=== PATIENT | female | born 1975 | race Caucasian/White ===

== ENCOUNTER 2018-10-24 07:59 | Observation (INO) ==
[2018-10-24 09:57] LABS: INR 1.1; PT Patient Result 11.6 SECS; Partial Thromboplastin Time 25.9 SECS (0-40)
[2018-10-24 10:03] LABS: Basophils % 0.3 % (0.0-0.8); Eosinophils % 0.3 % (0.00-10.9); Hematocrit 38.5 VOL% (35.7-47.0); Hemoglobin 10.7 GM/DL (12.0-16.0); Immature Granulocytes % 0.4 %; Immature Granulocytes Absolute 0.04 #; Lymphocytes # 0.5 10*3/uL (1.4-4.0); Mean Corpuscular HGB Conc 27.8 GM/DL (32-36); Mean Corpuscular Volume 62.9 FL (87-102); Monocytes % 3.2 % (1.7-12.7); NRBC # 0.02 10*3/uL; Neutrophils % 90.8 % (38.7-73.9); Platelet Count 273 T/CUMM (130-400); Red Blood Count 6.12 MC/CUMM (3.8-5.5); Red Cell Distribution Width 29.8 % (9.3-17.3)
[2018-10-24 10:09] LABS: Anisocytosis 1+; Hypochromasia 2+; Lymphocytes 3 % (20-55); Microcytosis 1+; Ovalocytes Few; Polychromasia Slight; Segmented Neutrophils 96 % (50-85); Total Cells Counted 100
[2018-10-24 10:10] LABS: Platelet Estimate Normal
[2018-10-24 10:23] LABS: Albumin 2.6 G/DL (3.4-5.0); Bilirubin,Total 0.4 MG/DL (0.2-1.0); Calcium 8.6 MG/DL (8.5-10.1); Osmolality,Calculated 283.3 MOS/KG (273-304); Total Protein 6.8 G/DL (6.4-8.3)
[2018-10-24] MEDS ORDERED: ENOXAPARIN 60 MG/0.6 ML SYRINGE SUBCUT STA (11:21)
[2018-10-24] MEDS ORDERED: ONDANSETRON 4 MG/2 ML VIAL IV PRN (14:59)
[2018-10-24] MEDS ORDERED: ACETAMINOPHEN 325 MG TABLET PO PRN (14:59)
[2018-10-24] MEDS ORDERED: DEXTROSE 50% 25 GM/50 ML VIAL IV PRN (15:17)
[2018-10-24] MEDS ORDERED: GLUCAGON 1 MG VIAL IM PRN (15:17)
[2018-10-24] MEDS: INSULIN LISPRO 100 UNIT/ML SUBCUT SCH ×2 (17:35→21:00)
[2018-10-24] MEDS ORDERED: APIXABAN 5 MG TABLET PO SCH (21:00)
[2018-10-25 05:46] LABS: Calcium 8.3 MG/DL (8.5-10.1); Thyroid Stimulating Hormone 2.23 uIU/ml (0.358-3.74)
[2018-10-25 05:49] LABS: Basophils % 0.8 % (0.0-0.8); Eosinophils # 0.1 10*3/uL (0.0-0.87); Eosinophils % 1.3 % (0.00-10.9); Hematocrit 33.1 VOL% (35.7-47.0); Hemoglobin 9.2 GM/DL (12.0-16.0); Immature Granulocytes % 0.5 %; Immature Granulocytes Absolute 0.02 #; Lymphocytes # 0.8 10*3/uL (1.4-4.0); Lymphocytes % 21.4 % (21.3-54.2); Mean Corpuscular HGB Conc 27.8 GM/DL (32-36); Mean Corpuscular Volume 62.6 FL (87-102); NRBC # 0.04 10*3/uL; Platelet Count 258 T/CUMM (130-400); Red Blood Count 5.29 MC/CUMM (3.8-5.5); White Blood Count 3.9 T/CUMM (4-12)
[2018-10-25 05:54] LABS: Hypochromasia 1+; Ovalocytes Slight; Platelet Estimate Adequate
[2018-10-25 05:55] LABS: Microcytosis Slight
[2018-10-25] MEDS ORDERED: DEXTROSE 10% 250 ML IV PRN (06:55)
[2018-10-25] MEDS: INSULIN LISPRO 100 UNIT/ML SUBCUT SCH ×2 (07:47→14:48)
[2018-10-25] MEDS ORDERED: APIXABAN 5 MG TABLET PO SCH (09:00)
[2018-10-25] MEDS ORDERED: PANTOPRAZOLE 40 MG TABLET PO SCH (09:00)
[2018-10-25] MEDS ORDERED: SODIUM POLYSTYRENE SULFATE 15 GM/60 ML BOTTLE PO ONE (11:00)
[2018-10-25 12:09] VITALS: BP 95/67
== END 2018-10-25 14:00 | disposition home or self-care (01) ==
LOC: N.ED 07:59 → N.EDINP 11:01 → N.2E 14:24 → INTOOBSV 14:59
PROVIDERS: ADMIT Internal Medicine; ATTEND Internal Medicine

== ENCOUNTER 2020-06-20 19:19 | Inpatient (IN) ==
[2020-06-20 21:04] LABS: Albumin 2.9 G/DL (3.4-5.0); Bilirubin,Total 0.6 MG/DL (0.2-1.0); Calcium 8.9 MG/DL (8.5-10.1); Osmolality,Calculated 286.7 MOS/KG (273-304); Potassium 4.7 MMOL/L (3.5-5.1); Total Protein 7.8 G/DL (6.4-8.3)
[2020-06-20 21:20] LABS: Basophils % 0.3 % (0.0-0.8); Hematocrit 36.7 VOL% (35.7-47.0); Hemoglobin 8.6 GM/DL (12.0-16.0); Immature Granulocytes % 0.9 %; Immature Granulocytes Absolute 0.12 #; Lymphocytes # 0.3 10*3/uL (1.4-4.0); Lymphocytes % 2.3 % (21.3-54.2); Mean Corpuscular HGB Conc 23.4 GM/DL (32-36); Monocytes % 2.4 % (1.7-12.7); NRBC # 0.18 10*3/uL; Neutrophils % 94.1 % (38.7-73.9); Platelet Count 353 T/CUMM (130-400); Red Blood Count 6.12 MC/CUMM (3.8-5.5); Red Cell Distribution Width 26.8 % (9.3-17.3); White Blood Count 13.1 T/CUMM (4-12)
[2020-06-20 22:32] LABS: Lymphocytes 2 % (20-55); Segmented Neutrophils 98 % (50-85); Total Cells Counted 100
[2020-06-20 22:36] LABS: Ovalocytes Slight; Poikilocytosis 1+; Polychromasia Few; Schistocytes 1+
[2020-06-20 22:37] LABS: Macrocytosis 1+; Microcytosis 1+; Platelet Estimate Decreased; Spherocytes Few; Tear Drop Cells Few
[2020-06-20] MEDS ORDERED: CLINDAMYCIN INJ 600 MG in PREMIX 1 EACH IV STA (23:12)
[2020-06-21] MEDS ORDERED: GLUCAGON 1 MG VIAL IM PRN (00:37)
[2020-06-21] MEDS ORDERED: DEXTROSE 50% 25 GM/50 ML VIAL IV PRN ×2 (00:37→00:51)
[2020-06-21] MEDS ORDERED: ONDANSETRON 4 MG/2 ML VIAL IV PRN (00:37)
[2020-06-21] MEDS ORDERED: LACTATED RINGERS 1,000 ML IV SCH (01:00)
[2020-06-21] MEDS: INSULIN LISPRO 100 UNIT/ML SUBCUT SCH ×3 (02:07→10:58)
[2020-06-21] MEDS ORDERED: DOXYCYCLINE HYCLATE INJ 100 MG in SODIUM CHLORIDE 0.9% 100 ML IV SCH (04:30)
[2020-06-21 04:43] LABS: Calcium 8.8 MG/DL (8.5-10.1); Osmolality,Calculated 282.8 MOS/KG (273-304); Potassium 5.2 MMOL/L (3.5-5.1)
[2020-06-21 04:47] LABS: Basophils % 0.2 % (0.0-0.8); Eosinophils % 0.1 % (0.00-10.9); Hematocrit 35.4 VOL% (35.7-47.0); Hemoglobin 8.6 GM/DL (12.0-16.0); Immature Granulocytes % 0.7 %; Immature Granulocytes Absolute 0.09 #; Lymphocytes # 0.3 10*3/uL (1.4-4.0); Lymphocytes % 1.9 % (21.3-54.2); Mean Corpuscular HGB Conc 24.3 GM/DL (32-36); Mean Corpuscular Volume 58.8 FL (87-102); Monocytes % 2.6 % (1.7-12.7); NRBC # 0.22 10*3/uL; Neutrophils % 94.5 % (38.7-73.9); Platelet Count 296 T/CUMM (130-400); Red Blood Count 6.02 MC/CUMM (3.8-5.5); Red Cell Distribution Width 26.7 % (9.3-17.3); White Blood Count 13.3 T/CUMM (4-12)
[2020-06-21 05:09] LABS: Lymphocytes 3 % (20-55); Nucleated Red Blood Cells 1 (0-5); Segmented Neutrophils 96 % (50-85); Total Cells Counted 100
[2020-06-21 05:10] LABS: Hypochromasia 1+; Macrocytosis Slight; Platelet Estimate Adequate; Polychromasia Slight
[2020-06-21] MEDS ORDERED: MAGNESIUM SULF RIDER 4 GM in PREMIX 1 EACH IV PRN (07:57)
[2020-06-21] MEDS ORDERED: CLINDAMYCIN INJ 600 MG in PREMIX 1 EACH IV SCH (08:00)
[2020-06-21] MEDS ORDERED: SODIUM BICARB INJ 100 MEQ in SODIUM CHLORIDE 0.45% 1,000 ML IV SCH (08:30)
[2020-06-21] MEDS: PANTOPRAZOLE 40 MG VIAL IV SCH (10:34)
[2020-06-21] MEDS: LEVOFLOXACIN INJ 750 MG in PREMIX 1 EACH IV SCH (10:37)
[2020-06-21] MEDS ORDERED: INSULIN REGULAR DRIP 100 ML IV PRN (11:43)
[2020-06-21] MEDS: SODIUM BICARB INJ 50 MEQ in DEXTROSE 5% 1,000 ML IV SCH ×2 (12:00→20:29)
[2020-06-21 12:55] LABS: Calcium 8.6 MG/DL (8.5-10.1); Osmolality,Calculated 288.1 MOS/KG (273-304); Potassium 4.1 MMOL/L (3.5-5.1)
[2020-06-21] MEDS: NORETHINDRONE PO SCH (14:17)
[2020-06-21] MEDS: ETHINYL ESTRADIOL PO SCH (14:17)
[2020-06-21 18:34] LABS: Calcium 8.1 MG/DL (8.5-10.1); Osmolality,Calculated 286.1 MOS/KG (273-304); Potassium 3.5 MMOL/L (3.5-5.1)
[2020-06-21] MEDS: POTASSIUM CHLORIDE RIDER 10 MEQ in PREMIX 1 EACH IV PRN ×2 (20:28→20:29)
[2020-06-21] MEDS: SIMVASTATIN 10 MG TABLET PO SCH (20:29)
[2020-06-22 02:00] LABS: Osmolality,Calculated 274.8 MOS/KG (273-304); Potassium 3.7 MMOL/L (3.5-5.1)
[2020-06-22] MEDS: POTASSIUM CHLORIDE RIDER 10 MEQ in PREMIX 1 EACH IV PRN ×2 (02:17→03:17)
[2020-06-22] MEDS: SODIUM BICARB INJ 50 MEQ in DEXTROSE 5% 1,000 ML IV SCH (05:30)
[2020-06-22 06:09] LABS: Calcium 7.9 MG/DL (8.5-10.1); Osmolality,Calculated 272.1 MOS/KG (273-304); Potassium 3.8 MMOL/L (3.5-5.1)
[2020-06-22] MEDS: NORETHINDRONE PO SCH (11:37)
[2020-06-22] MEDS: LEVOFLOXACIN INJ 750 MG in PREMIX 1 EACH IV SCH (11:37)
[2020-06-22] MEDS: ETHINYL ESTRADIOL PO SCH (11:37)
[2020-06-22] MEDS: PANTOPRAZOLE 40 MG VIAL IV SCH (11:37)
[2020-06-22] MEDS: INSULIN NPH 100 UNIT/ML SUBCUT SCH ×2 (15:09→18:42)
[2020-06-22] MEDS ORDERED: hydrALAZINE 20 MG/1 ML VIAL IV PRN (18:06)
[2020-06-22] MEDS: SIMVASTATIN 10 MG TABLET PO SCH (22:04)
[2020-06-23] MEDS ORDERED: lisinopriL 10 MG TABLET PO SCH (09:00)
[2020-06-23] MEDS ORDERED: INFLUENZA VIRUS VACCINE 0.5 ML SYRINGE IM ONE (09:00)
[2020-06-23] MEDS: SODIUM CHLORIDE 0.9% 1,000 ML IV SCH ×2 (09:29→20:40)
[2020-06-23] MEDS: PANTOPRAZOLE 40 MG VIAL IV SCH (10:56)
[2020-06-23] MEDS: LEVOFLOXACIN INJ 750 MG in PREMIX 1 EACH IV SCH (10:56)
[2020-06-23] MEDS: ETHINYL ESTRADIOL PO SCH (11:41)
[2020-06-23] MEDS: INSULIN NPH 100 UNIT/ML SUBCUT SCH ×2 (11:41→18:12)
[2020-06-23] MEDS: NORETHINDRONE PO SCH (11:41)
[2020-06-23] MEDS: SIMVASTATIN 10 MG TABLET PO SCH (20:33)
[2020-06-24 05:03] LABS: Basophils % 0.4 % (0.0-0.8); Eosinophils # 0.1 10*3/uL (0.0-0.87); Eosinophils % 1.2 % (0.00-10.9); Hematocrit 30.6 VOL% (35.7-47.0); Hemoglobin 7.7 GM/DL (12.0-16.0); Immature Granulocytes % 1.4 %; Immature Granulocytes Absolute 0.11 #; Lymphocytes # 0.7 10*3/uL (1.4-4.0); Lymphocytes % 8.7 % (21.3-54.2); Mean Corpuscular HGB Conc 25.2 GM/DL (32-36); Mean Corpuscular Volume 57.3 FL (87-102); Monocytes % 8.6 % (1.7-12.7); NRBC # 0.12 10*3/uL; Neutrophils % 79.7 % (38.7-73.9); Platelet Count 311 T/CUMM (130-400); Red Blood Count 5.34 MC/CUMM (3.8-5.5); Red Cell Distribution Width 26.5 % (9.3-17.3); White Blood Count 7.7 T/CUMM (4-12)
[2020-06-24 05:08] LABS: Hypochromasia 2+; Macrocytosis Slight; Platelet Estimate Adequate
[2020-06-24 05:19] LABS: Calcium 8.5 MG/DL (8.5-10.1); Osmolality,Calculated 286.4 MOS/KG (273-304); Potassium 3.7 MMOL/L (3.5-5.1)
[2020-06-24] MEDS: SODIUM CHLORIDE 0.9% 1,000 ML IV SCH (06:08)
[2020-06-24] MEDS ORDERED: propofoL 200 MG/20 ML VIAL IV ONE (07:55)
[2020-06-24] MEDS ORDERED: LIDOCAINE 2% 5 ML VIAL ONE (07:55)
[2020-06-24] MEDS: INSULIN NPH 100 UNIT/ML SUBCUT SCH ×2 (07:58→16:20)
[2020-06-24] MEDS ORDERED: LACTATED RINGERS 1,000 ML IV SCH (08:00)
[2020-06-24] MEDS ORDERED: ONDANSETRON 4 MG/2 ML VIAL ONE (08:41)
[2020-06-24] MEDS ORDERED: SUCCINYLCHOLINE 200 MG/10 ML VIAL ONE ×2 (08:41→09:39)
[2020-06-24] MEDS ORDERED: SEVOFLURANE 1 UNIT/15 MINUTE INH ONE ×6 (08:41→12:54)
[2020-06-24] MEDS ORDERED: PHENYLEPHRINE 1 MG/10 ML SYRINGE IV ONE ×4 (08:41→12:29)
[2020-06-24] MEDS ORDERED: fentaNYL 100 MCG/2 ML VIAL ONE ×2 (08:46→11:07)
[2020-06-24] MEDS ORDERED: PHENYLEPHRINE 10 MG/1 ML VIAL IV ONE (08:57)
[2020-06-24 09:00] LABS: % Iron Saturation 3.4 % (18-50); Ferritin 6.7 ng/ml (8-252)
[2020-06-24] MEDS ORDERED: LACTATED RINGERS 1,000 ML IV ONE (09:03)
[2020-06-24] MEDS ORDERED: SODIUM CHLORIDE 0.9% 250 ML IV ONE (09:03)
[2020-06-24] MEDS ORDERED: ROCURONIUM 50 MG/5 ML VIAL IV ONE ×2 (09:29→11:07)
[2020-06-24] MEDS ORDERED: MIDAZOLAM 2 MG/2 ML VIAL ONE ×3 (09:30→11:07)
[2020-06-24 09:53] LABS: Folate 11.4 NG/ML (5.38-24.0)
[2020-06-24] MEDS ORDERED: MIDAZOLAM 100 MG in SODIUM CHLORIDE 0.9% 80 ML IV PRN (10:09)
[2020-06-24] MEDS: ETHINYL ESTRADIOL PO SCH (10:26)
[2020-06-24] MEDS: NORETHINDRONE PO SCH (10:26)
[2020-06-24] MEDS: PANTOPRAZOLE 40 MG VIAL IV SCH (10:27)
[2020-06-24 10:33] LABS: Bacteria,Urine Occasional /HPF (Few); Bilirubin,Urine Negative (Negative); Blood, Urine Negative (Negative); Glucose,Urine (UA) >=500 mg/dL (Negative); Ketones,Urine 80 mg/dL (Negative); Mucus,Urine Occasional /LPF (Occasional); Nitrite,Urine Negative (Negative); Protein,Urine Negative; RBC,Urine 4 /HPF (0-4); Squamous Epithelial Cell,Urine Occasional /HPF (0-10); Urine Appearance CLEAR (Clear); Urine Color Yellow (Yellow); Urine Specific Gravity 1.021 (1.001-1.035); Urine Urobilinogen < 2.0 EU/DL (0.2-1.0); WBC,Urine <1 /HPF (0-6)
[2020-06-24 10:41] LABS: ABG Base Excess -8.5 MMOL/L (-2.5-2.5); ABG HCO3 17.5 MMOL/L (20-26); ABG PCO2 29.9 MM HG (35-48); ABG PH 7.344 (7.35-7.45); ABG TCO2 15.4 MMOL/L (23-27); Allen Test Positive; Pt O2 Delivery Device Ventilator
[2020-06-24] MEDS: LEVOFLOXACIN INJ 750 MG in PREMIX 1 EACH IV SCH (10:50)
[2020-06-24] MEDS ORDERED: INSULIN REGULAR 100 UNIT/ML ONE (11:30)
[2020-06-24] MEDS ORDERED: SODIUM BICARBONATE 50 MEQ/50 ML VIAL IV ONE ×3 (11:57→12:54)
[2020-06-24] MEDS ORDERED: DEXAMETHASONE 4 MG/1 ML VIAL ONE (12:37)
[2020-06-24] MEDS: INSULIN LISPRO 100 UNIT/ML SUBCUT SCH ×4 (13:32→23:49)
[2020-06-24] MEDS: SODIUM BICARB INJ 50 MEQ in SODIUM CHLORIDE 0.45% 1,000 ML IV SCH (14:17)
[2020-06-24] MEDS: SIMVASTATIN 10 MG TABLET PO SCH (20:37)
[2020-06-24] MEDS ORDERED: fentaNYL INJ 1,250 MCG in SODIUM CHLORIDE 0.9% 225 ML IV PRN (20:41)
[2020-06-24] MEDS ORDERED: PHENYLEPHRINE DRIP 40 MG/250 ML PREMIX IV PRN (23:18)
[2020-06-24] MEDS ORDERED: PHENYLEPHRINE DRIP 40 MG/250 ML PREMIX IV ONE (23:21)
[2020-06-25] MEDS: SODIUM BICARB INJ 50 MEQ in SODIUM CHLORIDE 0.45% 1,000 ML IV SCH ×2 (00:54→13:31)
[2020-06-25 04:25] LABS: ABG Base Excess -0.8 MMOL/L (-2.5-2.5); ABG HCO3 23.6 MMOL/L (20-26); ABG Oxygen Saturation 85.3 % (95-100); ABG PCO2 31.3 MM HG (35-48); ABG PH 7.465 (7.35-7.45); ABG PO2 50.9 MM HG (80-95); ABG TCO2 21.4 MMOL/L (23-27); Allen Test Positive; Pt O2 Delivery Device Ventilator
[2020-06-25] MEDS: INSULIN LISPRO 100 UNIT/ML SUBCUT SCH ×5 (04:55→20:37)
[2020-06-25] MEDS: INSULIN NPH 100 UNIT/ML SUBCUT SCH ×2 (08:22→17:05)
[2020-06-25] MEDS: FERRIC GLUCONATE COMPLEX 125 MG in SODIUM CHLORIDE 0.9% 100 ML IV SCH (08:22)
[2020-06-25] MEDS: PANTOPRAZOLE 40 MG VIAL IV SCH (08:39)
[2020-06-25] MEDS: ETHINYL ESTRADIOL PO SCH (08:40)
[2020-06-25] MEDS: NORETHINDRONE PO SCH (08:40)
[2020-06-25 08:46] LABS: Calcium 7.2 MG/DL (8.5-10.1); Osmolality,Calculated 283.3 MOS/KG (273-304); Potassium 3.2 MMOL/L (3.5-5.1)
[2020-06-25 08:56] LABS: Basophils % 0.1 % (0.0-0.8); Eosinophils # 0.1 10*3/uL (0.0-0.87); Eosinophils % 0.6 % (0.00-10.9); Hematocrit 23.1 VOL% (35.7-47.0); Immature Granulocytes Absolute 0.08 #; Lymphocytes # 0.8 10*3/uL (1.4-4.0); Lymphocytes % 10.3 % (21.3-54.2); Mean Corpuscular Volume 54.9 FL (87-102); Monocytes % 5.5 % (1.7-12.7); NRBC # 0.17 10*3/uL; Neutrophils % 82.5 % (38.7-73.9); Platelet Count 231 T/CUMM (130-400); Red Blood Count 4.21 MC/CUMM (3.8-5.5); Red Cell Distribution Width 25.9 % (9.3-17.3); White Blood Count 7.8 T/CUMM (4-12)
[2020-06-25 09:05] LABS: Hypochromasia 2+; Macrocytosis Slight; Platelet Estimate Adequate; Polychromasia Slight
[2020-06-25 09:15] LABS: ABG Base Excess -0.4 MMOL/L (-2.5-2.5); ABG HCO3 24.2 MMOL/L (20-26); ABG PCO2 28.4 MM HG (35-48); ABG PH 7.505 (7.35-7.45); ABG TCO2 21.3 MMOL/L (23-27); Allen Test Positive; Pt O2 Delivery Device Ventilator
[2020-06-25] MEDS ORDERED: SODIUM CHLORIDE 0.9% 1,000 ML IV PRN (09:48)
[2020-06-25] MEDS: LEVOFLOXACIN INJ 750 MG in PREMIX 1 EACH IV SCH (09:51)
[2020-06-25] MEDS: VANCOMYCIN INJ 750 MG in SODIUM CHLORIDE 0.9% 250 ML IV SCH ×2 (11:58→23:42)
[2020-06-25] MEDS: SODIUM CHLORIDE 0.45% 1,000 ML IV SCH (13:34)
[2020-06-25] MEDS: POTASSIUM CHLORIDE RIDER 10 MEQ in PREMIX 1 EACH IV PRN ×3 (17:05→20:48)
[2020-06-25] MEDS: SIMVASTATIN 10 MG TABLET PO SCH (20:48)
[2020-06-26] MEDS: POTASSIUM CHLORIDE RIDER 10 MEQ in PREMIX 1 EACH IV PRN (00:04)
[2020-06-26] MEDS: INSULIN LISPRO 100 UNIT/ML SUBCUT SCH ×5 (00:27→15:56)
[2020-06-26 00:35] LABS: Hematocrit 38.5 VOL% (35.7-47.0); Hemoglobin 11.2 GM/DL (12.0-16.0)
[2020-06-26 03:33] LABS: Basophils # 0.1 10*3/uL (0.0-0.2); Basophils % 0.3 % (0.0-0.8); Eosinophils # 0.1 10*3/uL (0.0-0.87); Eosinophils % 0.6 % (0.00-10.9); Hematocrit 36.9 VOL% (35.7-47.0); Hemoglobin 11.1 GM/DL (12.0-16.0); Immature Granulocytes % 1.1 %; Immature Granulocytes Absolute 0.18 #; Lymphocytes # 0.6 10*3/uL (1.4-4.0); Lymphocytes % 3.5 % (21.3-54.2); Mean Corpuscular HGB Conc 30.1 GM/DL (32-36); Mean Corpuscular Volume 61.8 FL (87-102); Monocytes % 3.8 % (1.7-12.7); NRBC # 0.35 10*3/uL; Neutrophils % 90.7 % (38.7-73.9); Platelet Count 160 T/CUMM (130-400); Red Blood Count 5.97 MC/CUMM (3.8-5.5); Red Cell Distribution Width 31.6 % (9.3-17.3); White Blood Count 16.2 T/CUMM (4-12)
[2020-06-26 03:51] LABS: Calcium 7.4 MG/DL (8.5-10.1); Osmolality,Calculated 277.5 MOS/KG (273-304); Potassium 4.1 MMOL/L (3.5-5.1)
[2020-06-26 03:57] LABS: Lymphocytes 5 % (20-55); Nucleated Red Blood Cells 2 (0-5); Platelet Estimate Normal; Segmented Neutrophils 92 % (50-85); Total Cells Counted 100
[2020-06-26 03:58] LABS: Hypochromasia Slight; Microcytosis 1+
[2020-06-26] MEDS: ETHINYL ESTRADIOL PO SCH (08:26)
[2020-06-26] MEDS: NORETHINDRONE PO SCH (08:26)
[2020-06-26] MEDS: MAGNESIUM SULF RIDER 2 GM in PREMIX 1 EACH IV PRN (08:30)
[2020-06-26] MEDS ORDERED: MAGNESIUM SULF RIDER 2 GM in PREMIX 1 EACH IV ONE (08:32)
[2020-06-26] MEDS: INSULIN NPH 100 UNIT/ML SUBCUT SCH ×2 (08:36→17:48)
[2020-06-26] MEDS: PANTOPRAZOLE 40 MG VIAL IV SCH (08:36)
[2020-06-26] MEDS: FERRIC GLUCONATE COMPLEX 125 MG in SODIUM CHLORIDE 0.9% 100 ML IV SCH (08:36)
[2020-06-26] MEDS: SODIUM CHLORIDE 0.45% 1,000 ML IV SCH (10:35)
[2020-06-26] MEDS ORDERED: INFLUENZA VIRUS VACCINE 0.5 ML SYRINGE IM ONE (11:00)
[2020-06-26] MEDS: VANCOMYCIN INJ 750 MG in SODIUM CHLORIDE 0.9% 250 ML IV SCH (12:02)
[2020-06-26] MEDS ORDERED: SODIUM PHOSPHATE INJ 30 MMOL in SODIUM CHLORIDE 0.9% 250 ML IV ONE (15:00)
[2020-06-26] MEDS: SIMVASTATIN 10 MG TABLET PO SCH (22:40)
[2020-06-27] MEDS: INSULIN LISPRO 100 UNIT/ML SUBCUT SCH ×6 (01:33→20:43)
[2020-06-27] MEDS: SODIUM CHLORIDE 0.45% 1,000 ML IV SCH ×3 (01:48→23:39)
[2020-06-27] MEDS: VANCOMYCIN INJ 750 MG in SODIUM CHLORIDE 0.9% 250 ML IV SCH ×2 (01:48→13:00)
[2020-06-27 04:33] LABS: Calcium 7.6 MG/DL (8.5-10.1); Osmolality,Calculated 277.4 MOS/KG (273-304); Potassium 3.3 MMOL/L (3.5-5.1)
[2020-06-27 04:55] LABS: Basophils # 0.1 10*3/uL (0.0-0.2); Basophils % 0.3 % (0.0-0.8); Eosinophils # 0.2 10*3/uL (0.0-0.87); Eosinophils % 1.6 % (0.00-10.9); Hematocrit 34.8 VOL% (35.7-47.0); Hemoglobin 10.4 GM/DL (12.0-16.0); Immature Granulocytes % 0.9 %; Immature Granulocytes Absolute 0.13 #; Lymphocytes # 0.6 10*3/uL (1.4-4.0); Lymphocytes % 4.1 % (21.3-54.2); Mean Corpuscular HGB Conc 29.9 GM/DL (32-36); Mean Corpuscular Volume 62.8 FL (87-102); Monocytes % 4.6 % (1.7-12.7); NRBC # 0.12 10*3/uL; Neutrophils % 88.5 % (38.7-73.9); Red Blood Count 5.54 MC/CUMM (3.8-5.5); Red Cell Distribution Width 32.3 % (9.3-17.3); White Blood Count 14.3 T/CUMM (4-12)
[2020-06-27 04:56] LABS: Platelet Count 209 T/CUMM (130-400)
[2020-06-27 04:59] LABS: Lymphocytes 4 % (20-55); Platelet Estimate Adequate; Segmented Neutrophils 92 % (50-85); Total Cells Counted 100
[2020-06-27 05:00] LABS: Hypochromasia Slight; Microcytosis 1+
[2020-06-27] MEDS: POTASSIUM CHLORIDE RIDER 10 MEQ in PREMIX 1 EACH IV PRN ×4 (06:52→13:00)
[2020-06-27] MEDS: FERRIC GLUCONATE COMPLEX 125 MG in SODIUM CHLORIDE 0.9% 100 ML IV SCH (10:30)
[2020-06-27] MEDS: INSULIN NPH 100 UNIT/ML SUBCUT SCH ×2 (11:13→17:16)
[2020-06-27] MEDS: PANTOPRAZOLE 40 MG VIAL IV SCH (11:15)
[2020-06-27] MEDS: ETHINYL ESTRADIOL PO SCH (11:15)
[2020-06-27] MEDS: NORETHINDRONE PO SCH (11:15)
[2020-06-27] MEDS: SIMVASTATIN 10 MG TABLET PO SCH (20:37)
[2020-06-28] MEDS: VANCOMYCIN INJ 750 MG in SODIUM CHLORIDE 0.9% 250 ML IV SCH ×2 (00:20→21:33)
[2020-06-28] MEDS: INSULIN LISPRO 100 UNIT/ML SUBCUT SCH ×6 (00:20→23:44)
[2020-06-28] MEDS: SODIUM CHLORIDE 0.45% 1,000 ML IV SCH ×2 (00:37→21:35)
[2020-06-28 06:39] LABS: Calcium 8.4 MG/DL (8.5-10.1); Osmolality,Calculated 274.7 MOS/KG (273-304); Potassium 3.8 MMOL/L (3.5-5.1)
[2020-06-28 07:54] LABS: Basophils # 0.1 10*3/uL (0.0-0.2); Basophils % 0.5 % (0.0-0.8); Eosinophils # 0.4 10*3/uL (0.0-0.87); Eosinophils % 4.2 % (0.00-10.9); Hematocrit 34.1 VOL% (35.7-47.0); Hemoglobin 9.6 GM/DL (12.0-16.0); Immature Granulocytes % 1.6 %; Immature Granulocytes Absolute 0.16 #; Lymphocytes # 0.7 10*3/uL (1.4-4.0); Lymphocytes % 7.1 % (21.3-54.2); Mean Corpuscular HGB Conc 28.2 GM/DL (32-36); Mean Corpuscular Volume 64.7 FL (87-102); Monocytes % 6.9 % (1.7-12.7); NRBC # 0.11 10*3/uL; Neutrophils % 79.7 % (38.7-73.9); Platelet Count 219 T/CUMM (130-400); Red Blood Count 5.27 MC/CUMM (3.8-5.5); Red Cell Distribution Width 33.1 % (9.3-17.3); White Blood Count 9.7 T/CUMM (4-12)
[2020-06-28 08:10] LABS: Platelet Estimate Normal
[2020-06-28 08:11] LABS: Anisocytosis 2+; Basophilic Stippling Slight; Ovalocytes Few; Poikilocytosis 1+; Target Cells Few; Tear Drop Cells Few
[2020-06-28 08:12] LABS: Polychromasia Slight
[2020-06-28] MEDS: INSULIN NPH 100 UNIT/ML SUBCUT SCH ×2 (08:24→18:35)
[2020-06-28] MEDS: PANTOPRAZOLE 40 MG VIAL IV SCH (09:47)
[2020-06-28] MEDS: ETHINYL ESTRADIOL PO SCH (09:47)
[2020-06-28] MEDS: NORETHINDRONE PO SCH (09:47)
[2020-06-28] MEDS ORDERED: INFLUENZA VIRUS VACCINE 0.5 ML SYRINGE IM ONE (10:00)
[2020-06-28] MEDS: FERRIC GLUCONATE COMPLEX 125 MG in SODIUM CHLORIDE 0.9% 100 ML IV SCH (17:51)
[2020-06-28] MEDS: SIMVASTATIN 10 MG TABLET PO SCH (21:34)
[2020-06-29] MEDS: INSULIN LISPRO 100 UNIT/ML SUBCUT SCH ×5 (03:53→21:42)
[2020-06-29 05:47] LABS: Calcium 8.3 MG/DL (8.5-10.1); Osmolality,Calculated 277.5 MOS/KG (273-304); Potassium 3.7 MMOL/L (3.5-5.1)
[2020-06-29] MEDS: INSULIN NPH 100 UNIT/ML SUBCUT SCH ×2 (09:42→16:28)
[2020-06-29] MEDS: ETHINYL ESTRADIOL PO SCH (10:39)
[2020-06-29] MEDS: NORETHINDRONE PO SCH (10:39)
[2020-06-29] MEDS: VANCOMYCIN INJ 750 MG in SODIUM CHLORIDE 0.9% 250 ML IV SCH (10:40)
[2020-06-29] MEDS: PANTOPRAZOLE 40 MG VIAL IV SCH (10:40)
[2020-06-29] MEDS: FERRIC GLUCONATE COMPLEX 125 MG in SODIUM CHLORIDE 0.9% 100 ML IV SCH (16:27)
[2020-06-29] MEDS: SODIUM CHLORIDE 0.45% 1,000 ML IV SCH (20:30)
[2020-06-29] MEDS: SIMVASTATIN 10 MG TABLET PO SCH (20:32)
[2020-06-30] MEDS: INSULIN LISPRO 100 UNIT/ML SUBCUT SCH ×6 (00:56→21:08)
[2020-06-30 07:22] LABS: Basophils # 0.1 10*3/uL (0.0-0.2); Basophils % 1.2 % (0.0-0.8); Eosinophils # 0.5 10*3/uL (0.0-0.87); Eosinophils % 7.9 % (0.00-10.9); Hematocrit 31.4 VOL% (35.7-47.0); Hemoglobin 9.4 GM/DL (12.0-16.0); Immature Granulocytes % 3.7 %; Immature Granulocytes Absolute 0.22 #; Lymphocytes # 0.8 10*3/uL (1.4-4.0); Lymphocytes % 13.3 % (21.3-54.2); Mean Corpuscular HGB Conc 29.9 GM/DL (32-36); Mean Corpuscular Volume 63.3 FL (87-102); Monocytes % 12.8 % (1.7-12.7); NRBC # 0.06 10*3/uL; Neutrophils % 61.1 % (38.7-73.9); Platelet Count 190 T/CUMM (130-400); Red Blood Count 4.96 MC/CUMM (3.8-5.5); Red Cell Distribution Width 33.8 % (9.3-17.3); White Blood Count 5.9 T/CUMM (4-12)
[2020-06-30 07:30] LABS: Hypochromasia 1+; Platelet Estimate Adequate
[2020-06-30] MEDS ORDERED: LACTATED RINGERS 1,000 ML IV SCH (08:00)
[2020-06-30] MEDS ORDERED: MAGNESIUM SULF RIDER 2 GM in PREMIX 1 EACH IV ONE (10:00)
[2020-06-30] MEDS ORDERED: LIDOCAINE 2% 5 ML VIAL ONE (11:15)
[2020-06-30] MEDS ORDERED: propofoL 200 MG/20 ML VIAL IV ONE (11:15)
[2020-06-30] MEDS ORDERED: PHENYLEPHRINE 1 MG/10 ML SYRINGE IV ONE (11:28)
[2020-06-30] MEDS: NORETHINDRONE PO SCH (11:30)
[2020-06-30] MEDS: ETHINYL ESTRADIOL PO SCH (11:30)
[2020-06-30] MEDS: INSULIN NPH 100 UNIT/ML SUBCUT SCH ×2 (11:40→16:50)
[2020-06-30] MEDS: PANTOPRAZOLE 40 MG VIAL IV SCH (13:26)
[2020-06-30] MEDS: FERRIC GLUCONATE COMPLEX 125 MG in SODIUM CHLORIDE 0.9% 100 ML IV SCH (13:59)
[2020-06-30] MEDS: SODIUM CHLORIDE 0.45% 1,000 ML IV SCH (16:51)
[2020-06-30] MEDS: SIMVASTATIN 10 MG TABLET PO SCH (21:08)
[2020-06-30] MEDS: MAGNESIUM SULF RIDER 2 GM in PREMIX 1 EACH IV PRN (21:45)
[2020-07-01] MEDS: INSULIN LISPRO 100 UNIT/ML SUBCUT SCH ×6 (00:30→22:10)
[2020-07-01] MEDS: INSULIN NPH 100 UNIT/ML SUBCUT SCH ×2 (09:41→16:24)
[2020-07-01] MEDS: FERRIC GLUCONATE COMPLEX 125 MG in SODIUM CHLORIDE 0.9% 100 ML IV SCH ×2 (09:41→09:52)
[2020-07-01] MEDS: PANTOPRAZOLE 40 MG VIAL IV SCH (09:41)
[2020-07-01] MEDS: NORETHINDRONE PO SCH (09:42)
[2020-07-01] MEDS: ETHINYL ESTRADIOL PO SCH (09:42)
[2020-07-01] MEDS: SODIUM CHLORIDE 0.45% 1,000 ML IV SCH (11:39)
[2020-07-01] MEDS: SIMVASTATIN 10 MG TABLET PO SCH (22:10)
[2020-07-02] MEDS: INSULIN LISPRO 100 UNIT/ML SUBCUT SCH ×2 (06:03→08:41)
[2020-07-02 07:59] VITALS: BP 106/56
[2020-07-02] MEDS: INSULIN NPH 100 UNIT/ML SUBCUT SCH (08:05)
[2020-07-02] MEDS: PANTOPRAZOLE 40 MG VIAL IV SCH (08:40)
[2020-07-02] MEDS: FERRIC GLUCONATE COMPLEX 125 MG in SODIUM CHLORIDE 0.9% 100 ML IV SCH (08:41)
[2020-07-02] MEDS: NORETHINDRONE PO SCH (08:42)
[2020-07-02] MEDS: ETHINYL ESTRADIOL PO SCH (08:42)
[2020-07-02] MEDS ORDERED: FERROUS SULFATE 300 MG/5 ML UDCUP PO SCH (11:00)
[2020-07-02] MEDS: SODIUM CHLORIDE 0.45% 1,000 ML IV SCH (11:14)
== END 2020-07-02 11:13 | disposition home or self-care (01) | DRG 254 ==
LOC: N.ED 19:19 → SUATTDRO 06-21 00:37 → INTOOBSV 06-21 00:37 → N.EDINP 06-21 00:37 → N.3E 06-21 01:29 → N.ICU 06-21 10:46 → SUATTDRO 06-22 09:45 → N.3E 06-22 16:54 → N.CC 06-24 09:44 → N.5E 06-27 16:03
PROVIDERS: ADMIT Internal Medicine; ATTEND Internal Medicine